=== PATIENT | female | born 1990 | race American Indian/Alaskan Native ===

== ENCOUNTER 2017-01-03 08:06 | Emergency (ER) | payer SELFPAY ==
[2017-01-03 08:56] LABS: Basophils % (Auto) 0.3 % (0.0-1.8); Eosinophils % (Auto) 0.2 % (0.0-4.3); Hematocrit 38.7 % (30.3-42.9); Hemoglobin 12.5 gm/dl (10.1-14.3); Mean Corpuscular HGB Conc 32 % (30-34); Mean Corpuscular Hemoglobin 28 pg (28-32); Mean Corpuscular Volume 88 fl (79-97); Platelet Count 254 K/mm3 (140-440); Red Blood Count 4.42 M/mm3 (3.65-5.03); White Blood Count 15.2 K/mm3 (4.5-11.0)
[2017-01-03 09:06] LABS: Anion Gap 17 mmol/L; BUN/Creatinine Ratio 12.22; Blood Urea Nitrogen 11 mg/dL (7-17); Calcium 9.3 mg/dL (8.4-10.2); Carbon Dioxide 25 mmol/L (22-30); Chloride 99.4 mmol/L (98-107); Glucose 115 mg/dL (65-100); Potassium 4.1 mmol/L (3.6-5.0); Sodium 137 mmol/L (137-145)
--- NOTE | 2017-01-03 10:50 | Ultrasound Report ---
ULTRASOUND PELVIC COMPLETE ULTRASOUND TRANSVAGINAL HISTORY: Recent , vaginal bleeding. TECHNIQUE: Transabdominal and transvaginal ultrasound with color and spectral doppler interrogation. Longitudinal and transverse real-time images of the pelvis demonstrate that the uterus and ovaries are present and in a normal location. They are of normal echogenicity, contour and size. The endometrium measures 9 mm. No pathologic changes in the adjacent tissues are noted. IMPRESSION: Unremarkable transabdominal and transvaginal pelvic ultrasounds.
[2017-01-03 15:55] LABS: Bacteria,Urine 2+ /HPF (Negative); Bilirubin,Urine NEG (Negative); Blood,Urine LG (Negative); Ketones,Urine NEG (Negative); Leukocyte Esterase,Urine SM (Negative); Mucus,Urine FEW /HPF; Nitrite,Urine NEG (Negative); Protein,Urine <15 mg/dL mg/dL (Negative)
[2017-01-03] MEDS ORDERED: NACL 0.9% 1000 ML 1,000 ML IV ONE (16:35)
[2017-01-03] MEDS ORDERED: TORADOL IV ONE (16:36)
[2017-01-03] MEDS ORDERED: NACL ONE (16:38)
--- NOTE | 2017-01-03 17:33 | Cat Scan Report ---
FINAL REPORT EXAM: CT ABDOMEN PELVIS W CON HISTORY: abdominal pain TECHNIQUE: CT abdomen and pelvis with intravenous contrast PRIORS: None. FINDINGS: No acute abnormality identified in the lung bases. No focal abnormality identified within the liver parenchyma. The spleen demonstrates normal size and attenuation. No pancreatic abnormalities seen. There is right perinephric stranding. Within the right kidney at the upper and midpole there are several wedge-shaped areas of hypodensity within the renal parenchyma extending through the cortex. No evidence for hydronephrosis. Left kidney demonstrates normal contrast enhancement. No evidence for hydronephrosis. The adrenal glands are unremarkable Abdominal aorta is normal in caliber. No pathologically enlarged lymph nodes are identified. No signs of free fluid or free air No evidence of small bowel dilatation. Colon is nondistended. No pericolonic inflammatory change. Urinary bladder is unremarkable. IMPRESSION: Right perinephric stranding. Several foci of wedge-shaped hypodensity within the right kidney. Findings are most consistent with acute pyelonephritis
--- NOTE | 2017-01-03 18:15 | Emergency Department Report ---
HPI - General Chief Complaint: Vaginal Bleeding Time Seen by Provider: 01/03/17 16:15 - HPI HPI: The patient is a 26 of female who presents for evaluation of abdominal pain. The patient reports 3 days of right lower quadrant abdominal pain, not out of 10 in severity, cramping and sharp in quality, radiating to the back. She also reports fever of 102F, on and off chills, mild vaginal bleeding, spotting, for the past 3 days as well. She shares that she received a dilation and curettage 2 weeks ago and [facility]. She has free of pain and bleeding 1 week ago. The patient denies trauma to the abdomen or back, eye matting, diarrhea, blood in the stool, dark tarry stool, dysuria, hematuria, flank pain, vaginal discharge, inability to pass flatus, paresthesias, or motor deficit in the legs. ED Past Medical Hx - Past Medical History Previous Medical History?: Yes Additional medical history: Vaginal delivery 09-26-2012,09-15-2009, - Surgical History Past Surgical History?: Yes Additional Surgical History: - Social History Smoking Status: Never Smoker Substance Use Type: Alcohol - Medications Home Medications: Home Medications Medication Instructions Recorded Confirmed Last Taken Type HYDROcodone/APAP 7.5-325 [[place] 1 each PO Q8HR PRN #15 tablet 01/03/17 Unknown Rx 7.5-325 mg TAB] Ibuprofen [Motrin] 600 mg PO Q6H PRN #20 tablet 01/03/17 Unknown Rx Levofloxacin [Levaquin] 750 mg PO QDAY #10 tablet 01/03/17 Unknown Rx ED Review of Systems ROS: Stated complaint: SYMPTOMS, SEPTIC SHOCK Other details as noted in HPI Constitutional: denies: fever ENT: denies: throat or neck pain Respiratory: denies: cough, shortness of breath Cardiovascular: denies: chest pain Endocrine: denies unexplained weight loss or gain Gastrointestinal: reports abdominal pain, nausea Genitourinary: denies: dysuria Musculoskeletal: denies: leg swelling Skin: denies: rash Neurological: denies: headache Hematological/Lymphatic: denies: easy bleeding or easy bruising Psych: denies sadness or hopelessness Physical Exam - Physical Exam Vital Signs: Vital Signs 01/03/17 01/03/17 08:18 14:22 Temperature 99.8 F H 98.6 F Pulse Rate 109 H Respiratory 20 16 Rate Blood Pressure 130/84 O2 Sat by Pulse 99 Oximetry Physical Exam: General: well-nourished, well-developed, no acute distress Head: Normocephalic, atraumatic Eyes: normal sclera ENT: Mucous membranes are pale and dry Neck: trachea midline, neck supple, No neck stiffness, no cervical adenopathy Respiratory: Breath sounds equal bilaterally, no wheezing, rales, or rhonchi Cardio: S1 and S2 present, no murmurs, rubs, gallops, capillary refill is delayed Abdomen: Normoactive bowel sounds, soft abdomen, generalized tenderness to palpation, concentrated tenderness in the right lower quadrant at McBurney's point, Mcgowan sign negative, no rigidity, no guarding or rebound tenderness Musc: No pitting edema Skin: No rash Neuro: no facial drooping, normal speech Psych: Normal affect ED Course Vital Signs 01/03/17 01/03/17 08:18 14:22 Temperature 99.8 F H 98.6 F Pulse Rate 109 H Respiratory 20 16 Rate Blood Pressure 130/84 O2 Sat by Pulse 99 Oximetry ED Medical Decision Making - Lab Data Result diagrams: 01/03/17 08:30 01/03/17 08:30 - Medical Decision Making The patient was seen and examined by myself. The patient is placed on a awake overnight monitor and continuous pulse ox. On initial evaluation, the patient was found to be in no distress. Evaluation orders are placed. IV access is established and the patient is given 1 L normal saline fluid bolus and IV toradol for pain. Lab results revealed leukocytosis, WBC 15, and otherwise labs were non-concerning including normal hemoglobin, hematocrit, platelet level, electrolytes, renal function, LFTs, lipase, and negative test. Ultrasound of the abdomen and pelvis is negative for retained products of conception, ovarian torsion, tubo-ovarian abscess. CT scan of the abdomen and pelvis reveals findings consistent with right hydronephrosis. The patient is given a tablet of Levaquin for treatment of pyelonephritis. The patient was reevaluated and reported that their symptoms were markedly improved. The patient is stable for discharge with outpatient follow-up. The patient is given follow-up and return instructions. The patient expressed understanding and agreed with the plan. The patient is discharged in stable condition. Critical care attestation.: If time is entered above; I have spent that time in minutes in the direct care of this critically ill patient, excluding procedure time. ED Disposition Clinical Impression: Pyelonephritis, acute, Acute generalized abdominal pain, Dehydration Disposition: DISCHARGED TO HOME OR SELFCARE Is pt being admited?: No Does the pt Need Aspirin: No Condition: Stable Instructions: Acute Pyelonephritis (ED), Abdominal Pain (ED) Prescriptions: HYDROcodone/APAP 7.5-325 [[place] 7.5-325 mg TAB] 1 each PO Q8HR PRN #15 tablet PRN Reason: Pain Ibuprofen [Motrin] 600 mg PO Q6H PRN #20 tablet PRN Reason: Pain Levofloxacin [Levaquin] 750 mg PO QDAY #10 tablet Referrals: PRIMARY CARE, [Primary Care Provider] - 3-5 Days Time of Disposition: 21:05
[2017-01-03] MEDS ORDERED: LEVAQUIN PO ONE (21:59)
[2017-01-03 22:13] VITALS: BP 121/77
== END 2017-01-03 22:19 | disposition home or self-care (01) ==
LOC: ED 08:06
DX: N10 Acute pyelonephritis (principal); R10.84 Generalized abdominal pain; E86.0 Dehydration
CPT/HCPCS: 36415; 74177; 76830; 76856; 80048; 81001; 84702; 85025; 86850; 86900; 86901; 96361; 96374; 99284; J1885; J7030; Q9967

== ENCOUNTER 2020-08-06 07:51 | Inpatient (IN) | payer MEDICAID ==
--- NOTE | 2020-08-06 08:40 | History and Physical Report ---
History of Present Illness Date of examination: 08/06/20 Date of admission: 08/06/2020 Chief complaint: vaginal bleeding History of present illness: Pt us 31.6 weeks gestation with post placenta previous that presents with on time episode of vaginal bleeding. States she saw in the toilet at home. Since being in triage she has not seen. She report taking a 10hr trip returning on yesterday with stopping only two times during the trip. She c/o having some irregular contractions that are not painful. During screening by RN pt mentioned feeling depressed and states she has some prior to that has gotten worse. She has never mentioned to providers in the office until today. She states she has has thought of suicide but never had a plan or acted on it. No thought to harm her children or herself. She states she would like help. She was brought to [facility] previously but left AMA when family members told her she would have her children taken from her if she continued to speak with the counselors regarding her depression. Pt was reassured she would be evaluated this admission to determine if she needs to start medications. Pt expressed understanding and agrees to be admitted. EDC Confirmation: 10/02/2020 Gestational Age: 16 4/7 weeks Past History : 6 Term Births: 2 Premature Births: 0 Living Children: 2 Para: 2 Mult. Births: 0 Prev : 0 Prev. attempt? none Aborta: 3 Elect. Ab: 3 Spont. Ab: 0 Ectopics: 0 # 1 Delivery date: 09/26/2009 Weeks Gestation: 40 labor: no Delivery type: Anesthesia type: epidural Delivery location: [facility] Sex: Male weight: 7 # 2 Delivery date: 09/15/2014 Weeks Gestation: 38 Delivery type: Anesthesia type: epidural Delivery location: [facility] Infant Sex: Female weight: 8 # 3 Delivery date: 2017 Delivery type: EAB # 4 Delivery date: 2018 Delivery type: EAB # 5 Delivery date: 2019 Delivery type: EAB Risk Factors: Smoked Tobacco Use: Never smoker Smokeless Tobacco Use: Never Passive smoke exposure: no Drug use: yes Substance: marijuana HIV high-risk behavior: yes Caffeine use: 1 drinks per day Alcohol use: yes Has patient -- [place] need to cut down: yes Comments: She discontinued use 1 month prior to first visit Exercise: no Seatbelt use: preg-drug and alcohol counsellor % Sun Exposure: rarely Family History Risk Factors: Family History of [place] in females < 65 years old: no Family History of [place] in males < 55 years old: no Dietary Counseling: pn yes Past Medical History: Negative Past Medical History Past Surgical History: negative surgical X 3 Past Medical History Anesthesia Complications: negative Anemia: negative Autoimmune Disorder: negative Bleeding Disorder: negative Blood Transfusions: negative Breast Disease: negative Diabetes: negative Heart Disease: negative Hypertension: negative Hepatitis/Liver Disease: negative Kidney Disease/UTI: negative Neurologic/Epilepsy/Migraines: negative Phlebitis/Varicosities: negative Psychiatric: negative Pulmonary Disease/Asthma: negative Thyroid Disease: negative Hospitalizations: negative Surgery (Non-restaurant line cook): negative surgical X 3 Abnormal PAP: negative [place] Exposure: negative Infertility: negative Uterine Anomaly: negative Uterine Surgery (not C/S): negative Other Gynecologic Problems: negative Social Hx: THC use, ETOH abuse until 2nd trimester Patient is single Smoking History: Patient has never smoked. Infection History Hx of STD: no HIV Risk Eval: yes Hepatitis B Risk Eval: no Personal hx. of genital herpes: no Partner hx. of genital herpes: no Rash, Viral, or Febrile illness since last LMP? no Varicella/Chicken Pox Status: Previous Disease TB Risk: no Genetic History Congenital Heart Defect: Mom: no Dad: no Katie Disease: Mom: no Dad: no Thalassemia Mom: no Dad: no Neural Tube Defect Mom: no Dad: no Down's Syndrome Mom: no Dad: no [place]-Sachs Mom: no Dad: no Sickle Cell Disease/Trait Mom: no Dad: no Hemophilia Mom: no Dad: no Muscular Dystrophy Mom: no Dad: no Cystic Fibrosis Mom: no Dad: no [place] Chorea Mom: no Dad: no Mental Retardation Mom: no Dad: no Fragile X Mom: no Dad: no Other Genetic/Chromosomal Disorder Mom: no Dad: no Child w/other defect Mom: no Dad: no Enviromental Exposures Xray Exposure: no Medication, drug, or alcohol use since LMP: yes Chemical/Other Exposure: no Exposure to Cat Liter: no Hx of Parvovirus (Fifth Disease): no Occupational Exposure to Children: none Active Medications (reviewed today): None Current Allergies: No known allergies Past History Past Medical History: other (depression) Past Surgical History: other (see hpi) ART GILDER History: other (see hpi) Family/Genetic History: other (see hpi) Social history: other (see hpi) - Obstetrical History Expected Date of Delivery: 10/02/20 Actual Gestation: 31 Week(s) 6 Day(s) : 6 Para: 2 Hx # Term Pregnancies: 2 Induced : 3 Number of Living Children: 2 Medications and Allergies Allergies Allergy/AdvReac Type Severity Reaction Status Date / Time iodine Allergy Itching Verified 08/06/20 08:08 shrimp Allergy Itching Uncoded 02/23/14 18:28 Home Medications Medication Instructions Recorded Confirmed Last Taken Type HYDROcodone/APAP 7.5-325 [[place] 1 each PO Q8HR PRN #15 tablet 01/03/17 08/06/20 Unknown Rx 7.5-325 mg TAB] Ibuprofen [Motrin] 600 mg PO Q6H PRN #20 tablet 01/03/17 08/06/20 Unknown Rx levoFLOXacin [Levaquin] 750 mg PO QDAY #10 tablet 01/03/17 08/06/20 Unknown Rx - Vital Signs Vital signs: Vital Signs Temp Resp 98.0 F 18 08/06/20 08:10 08/06/20 08:10 Temp Pulse Resp BP Pulse Ox 98.0 F 78 18 106/63 100 08/06/20 08:10 08/06/20 08:38 08/06/20 08:10 08/06/20 08:13 08/06/20 08:38 - Physical Exam Cardiovascular: Normal S1, Normal S2 Lungs: Positive: Clear to auscultation, Normal air movement Abdomen: Positive: normal appearance, soft. Negative: distention, tenderness, guarding Genitourinary (Female): Positive: other (deferred due to previa and pt noted not bleeding since being in [facility]) - Obstetrical FHR: category 1 Uterine Contraction Pattern: Irregular Results All other labs normal. Assessment and Plan - Patient Problems (1) 31 weeks gestation of Current Visit: Yes Status: Acute (2) Placenta previa Current Visit: Yes Status: Acute Qualifiers: Trimester: third trimester Qualified Code(s): O44.03 - Complete placenta previa NOS or without hemorrhage, third trimester Plan to address problem: -closely monitor. No more bleeding at this time. Fist episode of bleeding since diagnosis. -BPP, CL, ZHANNA ordered for this am (3) Vaginal bleeding Current Visit: Yes Status: Acute (4) Depression affecting Current Visit: Yes Status: Acute Plan to address problem: -psych consulted at will see pt around 10 am as per chargemaster analyst that placed the call -will d/c home once cleared by psych if stable from ob standpoint.
[2020-08-06] MEDS ORDERED: DOCUSATE SODIUM 100 MG CAP PO PRN (08:41)
[2020-08-06] MEDS ORDERED: ONDANSETRON 4 MG/2 ML INJ IV PRN (08:41)
[2020-08-06] MEDS ORDERED: ACETAMINOPHEN 325 MG TAB PO PRN (08:41)
[2020-08-06] MEDS ORDERED: SIMETHICONE 80 MG CHEW TAB PO PRN (08:41)
[2020-08-06 09:40] LABS: Basophils % (Auto) 0.2 % (0.0-1.8); Eosinophils # (Auto) 0.1 K/mm3 (0.0-0.4); Eosinophils % (Auto) 0.9 % (0.0-4.3); Hematocrit 31.4 % (30.3-42.9); Hemoglobin 10.6 gm/dl (10.1-14.3); Lymphocytes # (Auto) 1.3 K/mm3 (1.2-5.4); Lymphocytes % (Auto) 16.2 % (13.4-35.0); Mean Corpuscular HGB Conc 34 % (30-34); Mean Corpuscular Volume 93 fl (79-97); Monocytes # (Auto) 0.6 K/mm3 (0.0-0.8); Monocytes % (Auto) 7.4 % (0.0-7.3); Platelet Count 173 K/mm3 (140-440); Red Blood Count 3.38 M/mm3 (3.65-5.03); Red Cell Distribution Width 13.2 % (13.2-15.2)
[2020-08-06] MEDS: LACTATED RINGERS 1,000 ML IV SCH ×2 (13:04→15:21)
--- NOTE | 2020-08-06 13:46 | Ultrasound Report ---
ULTRASOUND OBSTETRIC LIMITED ULTRASOUND BIOPHYSICAL PROFILE INDICATION / CLINICAL INFORMATION: placenta previa with vaginal bleeding. COMPARISON: None available. FINDINGS: BREATHING MOVEMENT = 2 GROSS BODY MOVEMENT = 2 TONE = 2 QUALITATIVE AMNIOTIC FLUID VOLUME = 2 TOTAL BIOPHYSICAL SCORE = 8/8 AMNIOTIC FLUID INDEX (cm) = 15.5 PRESENTATION: Cephalic. HEART RATE (beats per minute): 152 ADDITIONAL FINDINGS: Cervical length 4.7 cm. Complete placenta previa. IMPRESSION: 1. Biophysical Score = 8/8 2. Placenta previa Signer Name: Chriss Mercer MD Signed: 08/06/2020 1:42 PM Workstation Name: [id number]
--- NOTE | 2020-08-06 14:19 | Event Note ---
Date: 08/06/20 Informed by RN that pt will not be seen by psych until the am. Will con't to closely monitor and obs. CL noted to be normal. Previa noted. Findings written on prelim suggest possible abrutpion but there was not mention of this on the official report just verbally given to the RNs and on the prelim written report.
--- NOTE | 2020-08-06 15:05 | Event Note ---
Date: 08/06/20 As per nursing staff pt did have one episode of bright red blood per vagina since admission and was with voiding earlier. Pt does have a pad on and is being closely monitored. Given she is having bleeding with previa with have her to void while on bed pain as well as administer BMZ at this time. Will also consult [facility] in the am regarding out pt vs inpatient monitoring.
[2020-08-06] MEDS: BETAMET ACET/BETAMET NA PH 6 MG/ML INJ 5 ML MDV IM SCH (15:18)
[2020-08-07] MEDS ORDERED: OXYTOCIN DRIP 0 MILLIUNITS/0 ML BAG IV ONE (05:38)
--- NOTE | 2020-08-07 11:47 | Progress Note ---
Assessment and Plan - Patient Problems (1) 31 weeks gestation of Current Visit: Yes Status: Resolved (2) Placenta previa Current Visit: Yes Status: Acute Qualifiers: Trimester: third trimester Qualified Code(s): O44.03 - Complete placenta previa NOS or without hemorrhage, third trimester (3) Vaginal bleeding Current Visit: Yes Status: Acute Plan to address problem: -due to previa -seems minimal at this time. Will await input from [facility] provider this pm prior to d/c to home. (4) Depression affecting Current Visit: Yes Status: Acute Plan to address problem: -psych provider making rounds at this time and to see pt today -will d/c home once cleared by psych if stable from ob standpoint. (5) 32 weeks gestation of Current Visit: Yes Status: Acute Subjective - Subjective Date of service: 08/07/20 Principal diagnosis: IUP @32.0 weeks with placenta previa and vaginal bleeding2)depression Interval history: Pt noted to have single episode this am of seeing bleeding when wiping no blood noted on padding by nursing staff on pt. Psych again called this am and provider making rounds at this time. [facility] also to see pt prior to d/c to determine if out pt follow is possible as she is stable. I d/w the need to be cleared by both providers prior to d/c to home. She expressed understanding and all questions were addressed and answered. Patient reports: new complaints, vaginal bleeding (browinsh to pinkish with wiping), movement normal Objective - Vital Signs Vital Signs: Vital Signs - 12hr 08/07/20 08/07/20 08:45 08:47 Temperature 98.2 F Pulse Rate 92 H Respiratory 18 Rate Blood Pressure 109/61 - Exam Abdomen: Present: normal appearance, soft, normal bowel sounds. Absent: distention, tenderness, guarding FHR: category 1 - Labs Labs: Abnormal Labs 08/06/20 08:50 RBC 3.38 L [place] % (Auto) 7.4 H Seg Neutrophils % 75.3 H
--- NOTE | 2020-08-07 12:14 | Consultation ---
History of Present Illness - Reason for Consult Consult date: 08/07/20 Reason for consult: depression - History of Present Psychiatric Illness Doretha Nava is a 30y/o female who was admitted for vaginal bleeding. The patient states she is seven months . The patient a/o x 3. She is at times tearful. She seems very anxious. She says she cries all the time and has some pretty bad lows. She says she gets overwhelmed and anxious out of nowhere. She says she was like this prior to being but was afraid to ever express herself because her parents told her to "be careful what you say because they will take your kids or put you in the hospital." She says she's been dealing with these emotions for a long time. The patient denies SI/HI at present, but states she felt like "there's no reason to live within the last month." She says but she "doesn't want to hurt herself." The patient denies suicide attempts in the past. She also denies any psychiatric admits or meds. She says she "smoked weed up til about two weeks ago." The patient says "it helps me deal with so many emotions. She says I cry all the time." PAST PSYCHIATRIC HISTORY: Diagnoses: Denies Suicide attempts or Self-harm behavior: Denies Prior psychiatric hospitalizations: Denies Substance Abuse history: marijuana Previous psychiatric medications tried: Denies Outpatient treatment: Denies PAST MEDICAL HISTORY: None reported Family Psychiatric History: None reported or documented SOCIAL HISTORY Marital Status: Single Living Arrangements: With fiance Employment Status: Unemployed Access to guns/weapons: None reported Education: High school History of Abuse: Denies Legal History: Denies REVIEW OF SYSTEMS Constitutional: Negative for weight loss ENT: Negative for stridor Respiratory: Negative for cough or hemoptysis All other systems reviewed and are negative MENTAL STATUS EXAMINATION General Appearance: Dressed appropriately Behavior: calm and cooperative Mood: "Depressed" Affect and affective range: tearful Thought Process: goal directed, logical Thought Content: Hopelessness Speech: Normal volume, Regular rate and rhythm Suicidal Ideation: Denies Homicidal Ideation: Denies Hallucinations: Denies Delusions: None elicited Insight and Judgment: Limited Memory/Cognition: Limited Attention: Normal Orientation: Alert, oriented Assessment Major Depressive Disorder, 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 PSYCHOTHERAPY: Supportive psychotherapy provided MEDICAL: Per primary team DELIRIUM PRECAUTIONS: Please re-orient patient frequently, keep lights on during the day, and minimize benzodiazepines and opiates as these medications could worsen patient's confusion. UNDERWEAR HEMMER: Defer to primary DISPOSITION: Do not recommend acute inpatient psychiatric treatment. The patient understands that if suicidal thoughts or any feelings of endangerment are to arise she is to seek immediate assistance including, but not limited to 911, ER, crisis hotline. The patient is to abstain from all illicit drug use She is to follow up with outpatient psych in 7 to 14 days upon discharge The merchandising internship is to give the patient resources for outpatient psych, cog-beh therapy, and med assistance programs. Will sign off. Thank you for this consult. Medications and Allergies Allergies Allergy/AdvReac Type Severity Reaction Status Date / Time iodine Allergy Itching Verified 08/06/20 08:08 shrimp Allergy Itching Uncoded 02/23/14 18:28 Home Medications Medication Instructions Recorded Confirmed Last Taken Type HYDROcodone/APAP 7.5-325 [[place] 1 each PO Q8HR PRN #15 tablet 01/03/17 08/06/20 Unknown Rx 7.5-325 mg TAB] Ibuprofen [Motrin] 600 mg PO Q6H PRN #20 tablet 01/03/17 08/06/20 Unknown Rx levoFLOXacin [Levaquin] 750 mg PO QDAY #10 tablet 01/03/17 08/06/20 Unknown Rx Sertraline [Zoloft] 25 mg PO QDAY #30 tab 08/07/20 Unknown Rx Active Meds: Active Medications Acetaminophen (Tylenol) 650 mg PO Q4H PRN PRN Reason: Pain MILD(1-3)/Fever >100.5/HI Betamethasone Acet/Betameth SodPhos ([place] Soluspan) 12 mg IM Q24HR RON Last Admin: 08/06/20 15:18 Dose: 12 mg Documented by: Docusate Sodium (Colace) 100 mg PO Q12H PRN PRN Reason: Constipation Lactated Ringer's (Lactated Ringers) 1,000 mls @ 125 mls/hr IV DIRECT RON Last Admin: 08/06/20 15:21 Dose: 125 mls/hr Documented by: Ondansetron HCl (Zofran) 4 mg IV Q6H PRN PRN Reason: Nausea And Vomiting Simethicone (Mylicon) 80 mg PO Q6H PRN PRN Reason: Gas pain Mental Status Exam - Vital signs Last Vital Signs Temp 98.2 F 08/07/20 08:47 Pulse 92 H 08/07/20 08:45 Resp 18 08/07/20 08:47 BP 109/61 08/07/20 08:45 Pulse Ox 94 08/06/20 15:45 Results Result Diagrams: 08/06/20 08:50 All other labs normal.
[2020-08-07] MEDS: LACTATED RINGERS 1,000 ML IV SCH (12:37)
[2020-08-07] MEDS: BETAMET ACET/BETAMET NA PH 6 MG/ML INJ 5 ML MDV IM SCH (15:27)
[2020-08-07] MEDS ORDERED: SERTRALINE 25 MG TAB PO SCH ×2 (16:00→22:00)
[2020-08-07 16:37] VITALS: BP 109/66
--- NOTE | 2020-08-07 20:35 | Event Note ---
Date: 08/07/20 Late Entry: As per recommendaitons by [facility] pt was to remain in house for monitoring until she had 48 hours of no bleeding. Pt signed out AMA with risk in poor maternal or out come explained prior to signing out. Pt does have f/u appointments scheduled in both [facility] office as well as our office this week and next week
--- NOTE | 2020-08-07 20:39 | Discharge Summary ---
Providers - Providers Date of Admission: 08/07/20 13:26 Date of discharge: 08/07/20 (SIGNED OUT AMA) Attending physician: MICHELLE KARIMI 08/06/20 15:09 Consult to Physician [CONS] Routine Comment: Consulting Provider: AMBER GUZMAN Physician Instructions: please evaluate Reason For Exam: 31.6wks, previa, bleeding, known to practice Primary care physician: MICHELLE KARIMI Hospitalization Reason for admission: other (BLEEDING WITH PREVIA; DEPRESSION) Discharge diagnosis: other (32 WKS PREVIA; VAGINAL BLEEDING; DEPRESSION) Hospital course: PT WAS ADMITTED FOR EVALUTION AND OBSERVATION FOR VAGINAL BLEEDING WITH COMPLETE PLACENTA PREVIA. SHE HAD BETAMETHASONE X2. SHE ALSO WAS SEEN AND CLEARED BY PSYCH FOR DEPRESSION AND STARTED ON ZOLOFT 50MG Q DAY WHICH M AGREED WITH STARTING. PT WAS TO REMAIN INHOUSE UNTIL 48 HOURS OF NO VAGINAL BLEEDING BUT SIGNED OUT AMA AFTER SECOND DOSE OF BETAMETHASONE Condition at discharge: Undetermined Disposition: [id number] LEFT AGAINST MED ADVICE - Discharge Diagnoses (1) Placenta previa Status: Acute Qualifiers: Trimester: third trimester Qualified Code(s): O44.03 - Complete placenta previa NOS or without hemorrhage, third trimester (2) Vaginal bleeding Status: Acute (3) Depression affecting Status: Acute (4) 32 weeks gestation of Status: Acute Plan - Discharge Medications Prescriptions: Sertraline [Zoloft] 25 mg PO QDAY #30 tab - Provider Discharge Summary Additional instructions: [] Smoking cessation referral if applicable(refer to patient education folder for contact #) [] Refer to [facility] Booklet Call your doctor immediately for: * Fever > 100.5 * Heavy vaginal bleeding ( >1 pad per hour) * Severe persistent headache * Shortness of breath * Reddened, hot, painful area to leg or breast * Drainage or odor from incision. * Keep incision clean and dry at all times and follow doctor's instructions regarding bathing/showering - Follow up plan Follow up: MICHELLE KARIMI MD [Primary Care Provider] - 7 Days
== END 2020-08-07 16:09 | disposition left against medical advice (07) | DRG 781 ==
LOC: TRG 07:51 → APU 07:53 → TRG 16:44 → LD 16:45 → OBSVTOIN 08-07 13:26
PROVIDERS: ADMIT Obstetrics & Gynecology; ATTEND Obstetrics & Gynecology
DX: O44.03 Complete placenta previa NOS or without hemorrhage, third trimester (principal); O99.343 Other mental disorders complicating pregnancy, third trimester; F32.9 Major depressive disorder, single episode, unspecified; F41.1 Generalized anxiety disorder; Z91.041 Radiographic dye allergy status; Z91.013 Allergy to seafood; Z79.899 Other long term (current) drug therapy; Z3A.31 31 weeks gestation of pregnancy
CPT/HCPCS: 36415; 76815; 76819; 85025; 86850; 86900; 86901; G0378; J0702; J7120; U0003